=== PATIENT | female | born 1995 | race African-American/Black ===

== ENCOUNTER 2017-01-09 05:21 | Emergency (ER) | payer BC ==
[~2017-01-09] VITALS: Ht 167.6 cm; Wt 54.4 kg
[2017-01-09 05:52] LABS: NEG OBC UR NEG; POS OBC UR POS
--- NOTE | 2017-01-09 06:11 | PHYS DOC ---
Past Medical History Past Medical History: No Pertinent History Past Surgical History: No Surgical History Alcohol Use: None Drug Use: None Adult General Chief Complaint Chief Complaint: ABDOMINAL PAIN HPI HPI This is a 21-year-old female who states she's had significant right upper quadrant pain that does radiate somewhat into her right shoulder as well as some mild shortness of breath with deep breathing for the last 2 days. Patient was seen at urgent care yesterday and prescribed NSAIDs without relief. She denies any significant trauma to her abdomen. She denies any history of health problems. She states her last meal was last night did not cause her any problems. She states her symptoms are not worse with meals. She denies any nausea or vomiting or fever. She denies any history of abdominal surgery. Patient is in no distress upon my initial evaluation but when asked how severe her pain and she says it is 9 out of 10 in all localized to the right upper quadrant. Patient denies any vaginal bleeding or discharge. She denies any dysuria or hematuria. Review of Systems Review of Systems Constitutional: Denies fever or chills [] Eyes: Denies change in visual acuity, redness, or eye pain [] HENT: Denies nasal congestion or sore throat [] Respiratory: Denies cough or shortness of breath [] Cardiovascular: No additional information not addressed in HPI [] GI: Has abdominal pain, denies nausea, denies vomiting, denies bloody stools or diarrhea [] : Denies dysuria or hematuria [] Musculoskeletal: Denies back pain or joint pain [] Integument: Denies rash or skin lesions [] Neurologic: Denies headache, focal weakness or sensory changes [] Endocrine: Denies polyuria or polydipsia [] Current Medications Current Medications Current Medications Medications (Trade) Dose Ordered Sig/[facility] Start Time Stop Time Status Last Admin Dose Admin Fentanyl Citrate (Fentanyl 2ml Vial) 50 mcg 1X ONCE 01/09/17 07:00 01/09/17 07:04 DC 01/09/17 07:05 50 MCG Allergies Allergies Allergies Coded Allergies Type Severity Reaction Last Updated Verified No Known Drug Allergies 01/09/17 No Physical Exam Physical Exam Constitutional: Well developed, well nourished, no acute distress, non-toxic appearance. [] HENT: Normocephalic, atraumatic, bilateral external ears normal, oropharynx moist, no oral exudates, nose normal. [] Eyes: PERRLA, EOMI, conjunctiva normal, no discharge. [] Neck: Normal range of motion, no tenderness, supple, no stridor. [] Cardiovascular:Heart rate regular rhythm, no murmur [] Lungs & Thorax: Bilateral breath sounds clear to auscultation [] Abdomen: Bowel sounds normal, soft, RUQ tenderness, no masses, no pulsatile masses. [] Skin: Warm, dry, no erythema, no rash. [] Back: No tenderness, no CVA tenderness. [] Extremities: No tenderness, no cyanosis, no clubbing, ROM intact, no edema. [] Neurologic: Alert and oriented X 3, normal motor function, normal sensory function, no focal deficits noted. [] Psychologic: Affect normal, judgement normal, mood normal. [] Current Patient Data Vital Signs Vital Signs Date Time Temp Pulse Resp B/P Pulse Ox O2 Delivery O2 Flow Rate FiO2 01/09/17 07:05 16 01/09/17 05:37 98.9 85 128/72 100 Room Air 98.9 Lab Values Laboratory Tests Test 01/09/17 05:24 01/09/17 05:55 Urine Test Negative (NEG) White Blood Count 7.1x10^3/uL (4.0-11.0) Red Blood Count 3.98x10^6/uL (3.50-5.40) Hemoglobin 11.7g/dL (12.0-15.5) L Hematocrit 36.6% (36.0-47.0) Mean Corpuscular Volume 92fL (79-100) Mean Corpuscular Hemoglobin 29pg (25-35) Mean Corpuscular Hemoglobin Concent 32g/dL (31-37) Red Cell Distribution Width 13.7% (11.5-14.5) Platelet Count 207x10^3/uL (140-400) Neutrophils (%) (Auto) 71% (31-73) Lymphocytes (%) (Auto) 16% (24-48) L Monocytes (%) (Auto) 11% (0-9) H Eosinophils (%) (Auto) 2% (0-3) Basophils (%) (Auto) 0% (0-3) Neutrophils # (Auto) 5.0x10^3uL (1.8-7.7) Lymphocytes # (Auto) 1.1x10^3/uL (1.0-4.8) Monocytes # (Auto) 0.8x10^3/uL (0.0-1.1) Eosinophils # (Auto) 0.1x10^3/uL (0.0-0.7) Basophils # (Auto) 0.0x10^3/uL (0.0-0.2) Sodium Level 143mmol/L (136-145) Potassium Level 3.9mmol/L (3.5-5.1) Chloride Level 107mmol/L (98-107) Carbon Dioxide Level 26mmol/L (21-32) Anion Gap 10 (6-14) Blood Urea Nitrogen 9mg/dL (7-20) Creatinine 0.6mg/dL (0.6-1.0) Estimated GFR (Cockcroft-Gault) 149.9 Glucose Level 102mg/dL (70-99) H Calcium Level 9.2mg/dL (8.5-10.1) Total Bilirubin 0.4mg/dL (0.2-1.0) Direct Bilirubin 0.1mg/dL (0.0-0.2) Aspartate Amino Transferase (AST) 26U/L (15-37) Alanine Aminotransferase (ALT) 27U/L (14-59) Alkaline Phosphatase 67U/L (46-116) Total Protein 7.8g/dL (6.4-8.2) Albumin 4.0g/dL (3.4-5.0) Lipase 151U/L (73-393) Laboratory Tests 01/09/17 05:55 Laboratory Tests 01/09/17 05:55 EKG EKG [] Radiology/Procedures Radiology/Procedures Portable one view of the chest as interpreted by ar did not reveal any acute cardiopulmonary process. Abdominal ultrasound demonstrates the following: Liver is homogeneous in echogenicity. No focal hepatic mass. Biliary tree normal in caliber. The common bile duct measures 3 millimeter. Gallbladder normal in size and echogenicity. No gallbladder wall thickening or pericholecystic fluid. No gallstones are seen. Right kidney measures 9.5 centimeter in length without hydronephrosis. Left kidney was not imaged. Limited visualized portions of pancreas aorta and IVC unremarkable. No significant ascites. Course & Med Decision Making Course & Med Decision Making Pertinent Labs and Imaging studies reviewed. (See chart for details) This 21-year-old female with significant right upper quadrant pain will have laboratory workup as well as an ultrasound rule out any acute gallbladder issue. I will control her pain with IV fentanyl. Upon my final reassessment, the patient's pain is much improved. Her laboratory workup is unremarkable. Her abdominal ultrasound is negative for any acute gallbladder or kidney abnormality. Her pain is all across the right upper quadrant and she has no other systemic signs such as nausea or vomiting or fever. I counseled her at length to follow closely with her primary care doctor next several days and return if her pain is not improved or if she develops any of the features described above such as nausea vomiting or fever. She is discharged without incident with pain control. I feel it to be excessive to obtain any CT imaging with negative bloodwork or absence of any other symptoms other than pain. Dragon Disclaimer Dragon Disclaimer This electronic medical record was generated, in whole or in part, using a voice recognition dictation system. Departure Departure Impression: Primary Impression: RUQ abdominal pain Disposition: HOME, SELF-CARE Admitting Physician: Other Condition: STABLE Referrals: NO PCP (PCP) Patient Instructions: Abdominal Pain, [id number] Additional Instructions: Please follow up closely with a primary care doctor for your abdominal pain. Take your pain medication as prescribed. Return to the ER immediately if your pain should not improve or if you develop any new symptoms such as nausea or vomiting. Scripts Hydrocodone/Apap 5-325 (Tryon 5-325 Tablet)1 Each Tablet1 Tab PO PRN Q6HRS PRN PAIN #10 TAB Prov:JOSE ANTONIO MURILLO DO 01/09/17 JOSE ANTONIO MURILLO DO Jan 09, 2017 06:11
[2017-01-09] MEDS ORDERED: FENTANYL PF 100 MCG/2 ML VIAL. IV ONE ×2 (06:15→07:00)
[2017-01-09 06:29] LABS: CALCIUM 9.2 mg/dL (8.5-10.1); CREATININE 0.6 mg/dL (0.6-1.0); GFR 149.9; POTASSIUM 3.9 mmol/L (3.5-5.1)
[2017-01-09 06:35] LABS: DIRECT BILIRUBIN 0.1 mg/dL (0.0-0.2); TOTAL BILIRUBIN 0.4 mg/dL (0.2-1.0); TOTAL PROTEIN 7.8 g/dL (6.4-8.2)
--- NOTE | 2017-01-09 06:46 | RAD ---
PROCEDURE Right upper quadrant ultrasound dated 01/09/2017. HISTORY Right upper quadrant pain for 2 days. TECHNIQUE Routine sonographic imaging performed. COMPARISON None. FINDINGS Liver is homogeneous in echogenicity. No focal hepatic mass. Biliary tree normal in caliber. The common bile duct measures 3 millimeter. Gallbladder normal in size and echogenicity. No gallbladder wall thickening or pericholecystic fluid. No gallstones are seen. Right kidney measures 9.5 centimeter in length without hydronephrosis. Left kidney was not imaged. Limited visualized portions of pancreas aorta and IVC unremarkable. No significant ascites. IMPRESSION Negative right upper quadrant ultrasound. Electronically signed by: Jeremias Hallman (Jan 09, 2017 06:44:14)
[2017-01-09] MEDS ORDERED: HYDR-971 PO (07:01)
[2017-01-09 07:27] VITALS: BP 117/69
[2017-01-09 07:35] LABS: BASO % 0 % (0-3); EOS % 2 % (0-3); HEMATOCRIT 36.6 % (36.0-47.0); HEMOGLOBIN 11.7 g/dL (12.0-15.5); LYMPH # 1.1 x10^3/uL (1.0-4.8); LYMPH % 16 % (24-48); MEAN CORPUSCULAR HEMOGLOBIN 29 pg (25-35); MEAN CORPUSCULAR HGB CONC 32 g/dL (31-37); MEAN CORPUSCULAR VOLUME 92 fL (79-100); MONO % 11 % (0-9); NEUT % 71 % (31-73); PLATELET COUNT 207 x10^3/uL (140-400); RED BLOOD COUNT 3.98 x10^6/uL (3.50-5.40); RED CELL DISTRIBUTION WIDTH 13.7 % (11.5-14.5); WHITE BLOOD COUNT 7.1 x10^3/uL (4.0-11.0)
--- NOTE | 2017-01-09 07:48 | RAD ---
Exam performed: One view chest. Indication: Shortness of breath for last 3 days Date of Service: 01/09/2017 8:06 AM Comparison: None available. Single AP upright portable view chest findings: Cardiomediastinal silhouette is within limits of normal. No acute infiltrates, effusion or pneumothorax is detected. The bony structures are normal. Impression: No acute cardiopulmonary process is detected.
== END 2017-01-09 07:50 | disposition home or self-care (01) ==
LOC: ER 05:21
DX: R10.11 Right upper quadrant pain (principal); R06.02 Shortness of breath; Z98.890 Other specified postprocedural states
CPT/HCPCS: 36415; 71010; 76705; 80048; 80076; 81025; 83690; 85027; 96374; 96376; 99285; J3010

== ENCOUNTER 2017-04-22 20:48 | Emergency (ER) | payer OTHER, BC ==
[~2017-04-22] VITALS: Ht 167.6 cm; Wt 54.4 kg
[~2017-04-22 20:48] MED LIST: HYDR-971 PO
[2017-04-22 21:18] VITALS: BP 114/73
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
== END 2017-04-22 22:32 | disposition home or self-care (01) ==
LOC: ER 20:48
DX: S09.90XA Unspecified injury of head, initial encounter (principal); W51.XXXA Accidental striking against or bumped into by another person, initial encounter; Y93.89 Activity, other specified; Y92.69 Other specified industrial and construction area as the place of occurrence of the external cause; Y99.8 Other external cause status
CPT/HCPCS: 99281